=== PATIENT | male | born 1970 | race Two or more races ===

== ENCOUNTER 2018-07-23 15:50 | Inpatient (IN) | payer OTHER ==
[~2018-07-23] VITALS: Ht 157.5 cm; Wt 130.2 kg
[~2018-07-23 15:50] MED LIST: HYDR-3240 PO; LEVO500T47 PO; METR500T PO; OXYC-306 PO
[2018-07-23] MEDS ORDERED: CEFTRIAXONE PMX 1GM/50ML 50 ML ONE (16:26)
[2018-07-23] MEDS ORDERED: SODIUM CHLORIDE FLUSH 10ML SYR IVF ONE (16:30)
[2018-07-23] MEDS ORDERED: CEFTRIAXONE 1,000 MG in SODIUM CHLORIDE 0.9% 50 ML IVPB ONE (16:30)
[2018-07-23 16:41] LABS: ALBUMIN 3.2 g/dL (3.4-5.0); ANION GAP 9 mmol/L (5-15); CALCIUM 8.3 mg/dL (8.5-10.1); CHLORIDE 107 mmol/L (98-107); CREATININE 0.77 mg/dL (0.7-1.3)
[2018-07-23 17:06] LABS: BASOPHILS # (AUTO) 0.02 x10^3/uL (0-0.1); BASOPHILS % (AUTO) 0 % (0-1); EOSINOPHILS # (AUTO) 0.09 x10^3/uL (0-0.4); EOSINOPHILS % (AUTO) 1 % (1-7); LYMPHOCYTES # (AUTO) 2.11 x10^3/uL (1-3.4); LYMPHOCYTES % (AUTO) 30 % (22-44); MD NO; MEAN CORPUSCULAR HGB CONC 33.9 g/dL (33.2-36.2); MEAN CORPUSCULAR VOLUME 91.3 fL (81-97); MEAN PLATELET VOLUME 6.8 fL (7.4-10.4); MONOCYTES # (AUTO) 0.52 x10^3/uL (0.2-0.8); MONOCYTES % (AUTO) 8 % (2-9); NEUTROPHILS # (AUTO) 4.22 x10^3/uL (1.8-6.8); NEUTROPHILS % (AUTO) 61 % (42-75); PLATELET COUNT 377 x10^3/uL (130-400); RED BLOOD COUNT 4.45 x10^6/uL (4.38-5.82); RED CELL DISTRIBUTION WIDTH 13.4 % (9.4-14.8)
[2018-07-23] MEDS ORDERED: VANCOMYCIN PER PHARMACY MC PRN ×2 (18:00→19:00)
[2018-07-23] MEDS ORDERED: VANCOMYCIN 2,400 MG in SODIUM CHLORIDE 0.9% 500 ML IV ONE (18:00)
[2018-07-23] MEDS ORDERED: SODIUM CHLORIDE FLUSH 10ML SYR IVF PRN (18:00)
[2018-07-23] MEDS ORDERED: BACITRACIN ZINC OINT 500U/GM, 0.9 GM ONE (18:37)
[2018-07-23] MEDS ORDERED: ONDANSETRON ODT 4 MG PO PRN (19:00)
[2018-07-23] MEDS ORDERED: KETOROLAC 30 MG/1 ML IV PRN (19:00)
[2018-07-23] MEDS ORDERED: hydrALAzine 20 MG/ML, 1ML IVPush PRN (19:00)
[2018-07-23] MEDS ORDERED: DIPHENHYDRAMINE 25 MG CAPSULE PO PRN (19:00)
[2018-07-23] MEDS ORDERED: DOCUSATE 100 MG CAPSULE PO PRN (19:00)
[2018-07-23] MEDS ORDERED: ACETAMINOPHEN 325 MG TABLET PO PRN (19:00)
[2018-07-23 19:53] LABS: HEMOGLOBIN A1C 5.8 % (4.2-6.3)
[2018-07-23] MEDS ORDERED: PHARMACOKINETIC CONSULTATION MC ONE (20:00)
[2018-07-23] MEDS ORDERED: PHARMACOKINETIC MONITORING MC PRN (20:00)
[2018-07-23] MEDS: ENOXAPARIN 40 MG/0.4 ML SQ SCH (20:09)
[2018-07-24 01:19] VITALS: BP 136/78
[2018-07-24] MEDS: CEFTRIAXONE PMX 1GM/50ML 50 ML IV SCH ×2 (04:36→16:03)
[2018-07-24] MEDS: VANCOMYCIN 2,000 MG in SODIUM CHLORIDE 0.9% 500 ML IV SCH ×2 (06:11→17:25)
[2018-07-24 08:21] VITALS: BP 111/76
[2018-07-24 13:01] VITALS: BP 98/67
[2018-07-24] MEDS ORDERED: POLYETHYLENE GLYCOL 17 GM PACKET PO PRN (14:00)
[2018-07-24 14:05] LABS: HCT (SEDRATE) 36.1 % (39.2-51.8)
[2018-07-24] MEDS: ENOXAPARIN 40 MG/0.4 ML SQ SCH (18:05)
[2018-07-24] MEDS: DOCUSATE 100 MG CAPSULE PO SCH (19:47)
[2018-07-24 19:58] VITALS: BP 99/61
[2018-07-25 02:30] VITALS: BP 142/71
[2018-07-25] MEDS: CEFTRIAXONE PMX 1GM/50ML 50 ML IV SCH ×2 (04:27→16:49)
[2018-07-25 05:32] LABS: ANION GAP 7 mmol/L (5-15); CALCIUM 7.9 mg/dL (8.5-10.1); CHLORIDE 108 mmol/L (98-107); CREATININE 0.74 mg/dL (0.7-1.3)
[2018-07-25 05:33] LABS: BASOPHILS # (AUTO) 0.03 x10^3/uL (0-0.1); BASOPHILS % (AUTO) 0 % (0-1); EOSINOPHILS # (AUTO) 0.09 x10^3/uL (0-0.4); EOSINOPHILS % (AUTO) 1 % (1-7); LYMPHOCYTES % (AUTO) 30 % (22-44); MD NO; MEAN CORPUSCULAR HEMOGLOBIN 30.8 pg (27.5-34.5); MEAN CORPUSCULAR HGB CONC 33.7 g/dL (33.2-36.2); MEAN CORPUSCULAR VOLUME 91.3 fL (81-97); MEAN PLATELET VOLUME 6.4 fL (7.4-10.4); MONOCYTES # (AUTO) 0.39 x10^3/uL (0.2-0.8); MONOCYTES % (AUTO) 7 % (2-9); NEUTROPHILS # (AUTO) 3.75 x10^3/uL (1.8-6.8); NEUTROPHILS % (AUTO) 62 % (42-75); PLATELET COUNT 337 x10^3/uL (130-400); RED CELL DISTRIBUTION WIDTH 13.4 % (9.4-14.8)
[2018-07-25] MEDS: VANCOMYCIN 2,000 MG in SODIUM CHLORIDE 0.9% 500 ML IV SCH ×2 (05:48→18:23)
[2018-07-25 08:30] VITALS: BP 110/71
[2018-07-25] MEDS: DOCUSATE 100 MG CAPSULE PO SCH ×2 (09:00→20:48)
[2018-07-25 14:30] VITALS: BP 109/72
[2018-07-25] MEDS: ENOXAPARIN 40 MG/0.4 ML SQ SCH (19:33)
[2018-07-25 20:43] VITALS: BP 108/73
[2018-07-26 02:19] VITALS: BP 120/84
[2018-07-26] MEDS: CEFTRIAXONE PMX 1GM/50ML 50 ML IV SCH (04:29)
[2018-07-26 05:59] LABS: BASOPHILS # (AUTO) 0.04 x10^3/uL (0-0.1); BASOPHILS % (AUTO) 1 % (0-1); EOSINOPHILS # (AUTO) 0.12 x10^3/uL (0-0.4); EOSINOPHILS % (AUTO) 2 % (1-7); LYMPHOCYTES % (AUTO) 36 % (22-44); MD NO; MEAN CORPUSCULAR HEMOGLOBIN 30.2 pg (27.5-34.5); MEAN CORPUSCULAR HGB CONC 33.3 g/dL (33.2-36.2); MEAN CORPUSCULAR VOLUME 90.7 fL (81-97); MEAN PLATELET VOLUME 6.1 fL (7.4-10.4); MONOCYTES % (AUTO) 7 % (2-9); NEUTROPHILS % (AUTO) 55 % (42-75); PLATELET COUNT 362 x10^3/uL (130-400); RED BLOOD COUNT 4.07 x10^6/uL (4.38-5.82); RED CELL DISTRIBUTION WIDTH 13.2 % (9.4-14.8)
[2018-07-26 06:03] LABS: HCT (SEDRATE) 36.7 % (39.2-51.8)
[2018-07-26 06:17] LABS: C-REACTIVE PROTEIN, QUANT 3.9 mg/dL (0.02-0.49); VANCOMYCIN,TROUGH 16.2 mcg/mL (5.0-10.0)
[2018-07-26] MEDS: VANCOMYCIN 2,000 MG in SODIUM CHLORIDE 0.9% 500 ML IV SCH (06:26)
[2018-07-26 08:34] VITALS: BP 101/59
[2018-07-26] MEDS: DOCUSATE 100 MG CAPSULE PO SCH (09:00)
[2018-07-26] MEDS ORDERED: GADOBUTROL 10 MMOL/10 ML PFS ONE (11:16)
[2018-07-26] MEDS ORDERED: CLIN300C8 PO (12:55)
[2018-07-26] MEDS ORDERED: ACET325T14 PO (12:55)
[2018-07-26] MEDS ORDERED: LACT1CAP24 PO (12:55)
[2018-07-26] MEDS ORDERED: AMOX-291 PO (12:55)
== END 2018-07-26 15:02 | disposition home or self-care (01) | DRG 603 ==
LOC: ED 16:37 → EDIP 17:56 → 3NW 19:15
PROVIDERS: ADMIT Hospitalist; ATTEND Hospitalist
DX: L03.116 Cellulitis of left lower limb (principal); E44.1 Mild protein-calorie malnutrition; Z68.43 Body mass index [BMI] 50.0-59.9, adult; I87.2 Venous insufficiency (chronic) (peripheral); E66.01 Morbid (severe) obesity due to excess calories; D64.9 Anemia, unspecified; K59.00 Constipation, unspecified; Z87.891 Personal history of nicotine dependence
CPT/HCPCS: 36415; 80048; 80202; 82040; 83036; 83605; 84145; 85025; 85651; 86140; 96365; 96367; A9585; G0378; J0696; J1650; J3370; J7040